=== PATIENT | female | born 2000 | race Caucasian/White ===

== ENCOUNTER 2021-10-13 22:53 | Observation (INO) ==
[2021-10-13] MEDS ORDERED: Iopamidol - 370 500 ML MLS IVP ONE (23:59)
[2021-10-14] MEDS ORDERED: 0.9 % Sodium Chloride 1,000 ML IV ONE ×2 (01:04)
[2021-10-14] MEDS ORDERED: levoFLOXacin 750 MG/150 ML 750 MG/150 ML BAG IVPB ONE (01:05)
[2021-10-14 01:40] LABS: Chloride 104 mEq/L (98-107); Potassium 3.5 mEq/L (3.5-5.1); Sodium 136 mEq/L (136-145)
[2021-10-14 01:41] LABS: Basophils # 0.1 K/mcL (0.0-0.2); Basophils % 0.4 %; Carbon Dioxide 23 mEq/L (23-29); Eosinophils % 0.3 %; Hematocrit 36.6 % (35.3-44.9); Hemoglobin 12.8 g/dL (11.5-15.4); Immature Granulocytes % 0.3 % (0-4); Lymphocytes # 1.3 K/mcL (0.6-4.6); Lymphocytes % 10.7 %; Mean Corpuscular Hemoglobin 31.1 pg (28.0-33.3); Mean Corpuscular Volume 89.1 fL (83.0-100.0); Mean Platelet Volume 9.6 fL (9.4-12.4); Monocytes # 0.6 K/mcL (0.0-1.3); Monocytes % 4.6 %; Neutrophils # 10.3 K/mcL (1.6-8.9); Platelet Count 287 K/mcL (140-400); Red Blood Count 4.11 M/mcL (3.82-4.97); Red Cell Distribution Width 11.9 % (11.5-14.5); Segmented Neutrophils % 83.7 %; White Blood Count 12.3 K/mcL (4.3-11.1)
[2021-10-14 01:43] LABS: BUN/Creatinine Ratio 14 (6-26); Blood Urea Nitrogen 10 mg/dL (7-20)
[2021-10-14 01:44] LABS: Alkaline Phosphatase 69 Units/L (38-126); Bilirubin,Direct 0.2 mg/dL (0.0-0.5); Bilirubin,Indirect 0.9 mg/dL (0.0-1.0); Bilirubin,Total 1.1 mg/dL (0.3-1.0); Calcium 8.8 mg/dL (8.6-10.3); Glucose 91 mg/dL (70-105); Osmolality,Calculated 281 (280-300)
[2021-10-14 01:45] LABS: Alanine Aminotransferase 14 Units/L (7-52); Albumin 4.2 g/dL (3.5-5.0); Albumin/Globulin Ratio 1.6 (1.1-2.2); Aspartate Amino Transferase 16 Units/L (5-34); Globulin 2.6 g/dL (2.4-3.5); Lipase 9 Units/L (11-82); Total Protein 6.8 g/dL (6.4-8.9)
[2021-10-14 01:51] LABS: Bacteria,Urine Few per hpf (None-Few); Bilirubin,Urine Negative (Negative); Blood,Urine Trace (Negative); Clarity,Urine Clear (Clear); Color,Urine Colorless (Yellow); Glucose,Urine (UA) Normal (Normal); Ketones,Urine 60 mg/dL (Negative); Leukocyte Esterase,Urine Negative (Negative); Nitrite,Urine Negative (Negative); PH,Urine 7.5 pH Units (5.0-8.0); Protein,Urine Trace mg/dL (Neg-Trace); Specific Gravity,Urine > 1.030 (1.010-1.025); Squamous Epithelial Cell,Urine Few per hpf (None-Few); Urobilinogen,Urine Normal (Normal)
[2021-10-14 01:53] LABS: Adenovirus Not Detected (Not Detect); Bordetella Pertussis Not Detected (Not Detect); Chlamydophila pneumoniae Not Detected (Not Detect); Coronavirus 229E Not Detected (Not Detect); Coronavirus HKU1 Not Detected (Not Detect); Coronavirus NL63 Not Detected (Not Detect); Coronavirus OC43 Not Detected (Not Detect); Human Metapneumovirus Not Detected (Not Detect); Human Rhinovirus/Enterovirus Not Detected (Not Detect); Influenza A Subtype 2009 H1 Not Detected (Not Detect); Influenza B Not Detected (Not Detect); Mycoplasma pneumoniae Not Detected (Not Detect); Parainfluenza Virus 1 Not Detected (Not Detect); Parainfluenza Virus 2 Not Detected (Not Detect); Parainfluenza Virus 3 Not Detected (Not Detect); Parainfluenza Virus 4 Not Detected (Not Detect); Respiratory Syncytial Virus Not Detected (Not Detect); SARS-CoV-2 Not Detected (Not Detect)
[2021-10-14] MEDS ORDERED: Ondansetron 4 MG/2 ML VIAL IVP PRN (02:51)
[2021-10-14] MEDS ORDERED: Naloxone 0.4 MG/ML INJ IVP PRN (02:51)
[2021-10-14] MEDS ORDERED: Melatonin 3 MG TABLET PO PRN (02:51)
[2021-10-14] MEDS: Ringers Solution, Lactated 1,000 ML IVC SCH ×2 (05:12→18:49)
[2021-10-14 05:23] LABS: Basophils # 0.1 K/mcL (0.0-0.2); Basophils % 0.4 %; Eosinophils % 0.2 %; Hematocrit 39.2 % (35.3-44.9); Hemoglobin 13.2 g/dL (11.5-15.4); Immature Granulocytes % 0.3 % (0-4); Lymphocytes # 1.5 K/mcL (0.6-4.6); Lymphocytes % 12.7 %; Mean Corpuscular HGB Conc 33.7 g/dL (31.6-35.5); Mean Corpuscular Hemoglobin 31.2 pg (28.0-33.3); Mean Corpuscular Volume 92.7 fL (83.0-100.0); Mean Platelet Volume 9.6 fL (9.4-12.4); Monocytes # 0.2 K/mcL (0.0-1.3); Monocytes % 1.5 %; Neutrophils # 9.9 K/mcL (1.6-8.9); Platelet Count 280 K/mcL (140-400); Red Blood Count 4.23 M/mcL (3.82-4.97); Red Cell Distribution Width 11.9 % (11.5-14.5); Segmented Neutrophils % 84.9 %; White Blood Count 11.6 K/mcL (4.3-11.1)
[2021-10-14 05:29] LABS: INR 1.2; Prothrombin Time 13.5 Seconds (9.4-12.1)
[2021-10-14 05:31] LABS: Activated Partial Thrombo Time 32.8 Seconds (26.0-36.0)
[2021-10-14 05:43] LABS: Alanine Aminotransferase 12 Units/L (7-52); Albumin 3.9 g/dL (3.5-5.7); Albumin/Globulin Ratio 1.6 (1.1-2.2); Alkaline Phosphatase 64 Units/L (34-104); Aspartate Amino Transferase 15 Units/L (13-39); BUN/Creatinine Ratio 11 (6-26); Bilirubin,Total 0.9 mg/dL (0.3-1.0); Blood Urea Nitrogen 8 mg/dL (6-20); Calcium 7.9 mg/dL (8.6-10.3); Carbon Dioxide 23 mEq/L (23-29); Chloride 110 mEq/L (98-107); Globulin 2.4 g/dL (2.4-3.5); Glucose 101 mg/dL (70-105); Magnesium 1.9 mg/dL (1.6-2.6); Osmolality,Calculated 286 (280-300); Phosphorous 3.1 mg/dL (2.7-4.5); Potassium 4.4 mEq/L (3.5-5.1); Sodium 139 mEq/L (136-145); Total Protein 6.3 g/dL (6.4-8.9)
[2021-10-14] MEDS ORDERED: Ipratropium/Albuterol Neb 3 ML IH PRN (05:58)
[2021-10-14] MEDS ORDERED: *HR* Promethazine 25 MG/ML VIAL IM PRN (06:14)
[2021-10-14] MEDS: *HR* HYDROcodone/Acet 5/325 mg TABLET PO PRN ×2 (06:28→13:27)
[2021-10-14] MEDS: *HR* Enoxaparin 40 MG/0.4 ML SYRINGE SQ SCH (06:29)
[2021-10-14] MEDS ORDERED: 0.9 % Sodium Chloride 500 ML IV ONE (07:52)
[2021-10-14] MEDS: Acetaminophen 325 MG TABLET PO PRN ×2 (08:17→20:41)
[2021-10-14] MEDS: Lactobacillus 1 EACH CAP.SPRINK PO SCH ×2 (08:18→20:41)
[2021-10-14] MEDS: Nicotine 14 MG PATCH.TD24 TD SCH (08:19)
[2021-10-14] MEDS ORDERED: *HR* LORazepam 1 MG TABLET PO ONE (14:28)
[2021-10-15 00:21] VITALS: PULSE 100
[2021-10-15 01:28] LABS: Basophils # 0.1 K/mcL (0.0-0.2); Basophils % 0.5 %; Eosinophils # 0.1 K/mcL (0.0-0.6); Eosinophils % 0.8 %; Hematocrit 32.6 % (35.3-44.9); Immature Granulocytes % 0.3 % (0-4); Lymphocytes # 2.1 K/mcL (0.6-4.6); Mean Corpuscular HGB Conc 33.7 g/dL (31.6-35.5); Mean Corpuscular Hemoglobin 30.9 pg (28.0-33.3); Mean Corpuscular Volume 91.6 fL (83.0-100.0); Mean Platelet Volume 9.6 fL (9.4-12.4); Monocytes # 0.9 K/mcL (0.0-1.3); Monocytes % 8.9 %; Neutrophils # 6.5 K/mcL (1.6-8.9); Platelet Count 223 K/mcL (140-400); Red Blood Count 3.56 M/mcL (3.82-4.97); Red Cell Distribution Width 11.9 % (11.5-14.5); Segmented Neutrophils % 67.5 %; White Blood Count 9.6 K/mcL (4.3-11.1)
[2021-10-15 01:51] LABS: BUN/Creatinine Ratio 8 (6-26); Blood Urea Nitrogen 5 mg/dL (6-20); Carbon Dioxide 21 mEq/L (23-29); Chloride 112 mEq/L (98-107); Glucose 84 mg/dL (70-105); Osmolality,Calculated 282 (280-300); Potassium 3.7 mEq/L (3.5-5.1); Sodium 138 mEq/L (136-145)
[2021-10-15 03:16] VITALS: BP 103/70; TEMP 99.6; O2SAT 95
[2021-10-15] MEDS: *HR* Enoxaparin 40 MG/0.4 ML SYRINGE SQ SCH (05:10)
[2021-10-15] MEDS ORDERED: levoFLOXacin 750 MG/150 ML 750 MG/150 ML BAG IVPB SCH (09:00)
[2021-10-15] MEDS: Lactobacillus 1 EACH CAP.SPRINK PO SCH (09:20)
[2021-10-15] MEDS: Nicotine 14 MG PATCH.TD24 TD SCH (09:22)
== END 2021-10-15 11:28 | disposition home or self-care (01) ==
LOC: 2ANU 22:53 → EMEROOARM 22:53 → SUATTDRO 10-14 01:54 → 2ANU 10-14 03:45
PROVIDERS: ADMIT Internal Medicine; ATTEND Family Medicine